=== PATIENT | male | born 1995 | race Caucasian/White ===

== ENCOUNTER 2022-05-24 15:04 | Emergency (ER) | payer MEDICAID ==
[2022-05-24 16:42] LABS: #Eosinphils 0.1 thou/uL (0.0-0.7); #Lymphocytes 1.9 thou/uL (1.20-3.40); #Neutrophils 11.8 thou/uL (1.40-6.50); %Basophils 0.3 % (0.0-1.0); %Eosinophils 0.6 % (0.0-10.0); %Lymphocytes 12.9 % (21.0-51.0); %Monocytes 6.6 % (0.0-10.0); %Neutrophils 79.6 % (42.0-75.0); Hemoglobin 15.2 g/dL (14.0-18.0); Mean Corpuscular Hemoglobin 30.7 pg (27.0-31.0); Mean Corpuscular Volume 90.2 fl (78.0-98.0); Mean Platelet Volume 7.8 fL (7.4-10.4); Platelet Count 285 10x3/uL (130-400); RBC Distribution Width 11.7 % (11.5-14.5); Red Blood Cell (RBC) Count 4.93 mill/uL (4.70-6.10); White Blood Cell (WBC) Count 14.8 10x3/uL (4.8-10.8)
[2022-05-24 17:00] LABS: Acetaminophen Less than 10.0 mcg/mL (10.0-30.0); Alcohol Less than 10 mg/dL (Less than 10); Salicylate Less than 8.0 mg/dL (15.0-30.0)
[2022-05-24 17:02] LABS: ALT (SGPT) 22 U/L (8-55); AST (SGOT) 35 U/L (5-34); Albumin 4.5 g/dL (3.5-5.0); Alkaline Phosphatase 85 U/L (40-110); Anion Gap 17 mmol/L (10-20); BUN (Urea Nitrogen) 13 mg/dL (8.9-20.6); Bilirubin, Total 0.9 mg/dL (0.2-1.2); CK (CPK) 570 U/L (30-200); Calc. Creatinine Clearance 0 mL/min (70-130); Calcium 9.2 mg/dL (7.8-10.44); Carbon Dioxide 21 mmol/L (22-29); Chloride 105 mmol/L (98-107); Estimated GFR 115; Globulin 2.5 g/dL (2.4-3.5); Glucose 70 mg/dL (70-105); Potassium 3.7 mmol/L (3.5-5.1); Sodium 139 mmol/L (136-145)
== END 2022-05-24 17:01 ==
LOC: ERS 15:04
DX: F19.10 Other psychoactive substance abuse, uncomplicated (principal); I25.2 Old myocardial infarction
CPT/HCPCS: 36415; 80053; 80307; 82550; 84443; 85025; 93005

== ENCOUNTER 2022-05-24 19:19 | Emergency (ER) | payer MEDICAID ==
[2022-05-24] MEDS ORDERED: GoLYTELY 4,000 ml Bottle PO SCH (19:45)
== END 2022-05-24 21:11 ==
LOC: ERS 19:19
DX: Z02.89 Encounter for other administrative examinations (principal); I25.2 Old myocardial infarction

== ENCOUNTER 2022-05-25 16:14 | Emergency (ER) | payer MEDICAID, OTHER | END 2022-05-25 19:59 | disposition home or self-care (01) | LOC: ERS 16:14 | DX: J02.8 Acute pharyngitis due to other specified organisms (principal); B09 Unspecified viral infection characterized by skin and mucous membrane lesions | CPT/HCPCS: 36415; 80053; 80307; 82550; 84443; 85025; 87081; 87430; 93005 ==

== ENCOUNTER 2022-05-25 21:45 | Emergency (ER) | payer MEDICAID | END 2022-05-25 22:22 | disposition left against medical advice (07) | LOC: ERS 21:45 | DX: F15.10 Other stimulant abuse, uncomplicated (principal); Z53.29 Procedure and treatment not carried out because of patient's decision for other reasons | CPT/HCPCS: 99282 ==

== ENCOUNTER 2022-05-26 09:22 | Emergency (ER) | payer OTHER ==
[2022-05-26 11:21] LABS: #Eosinphils 0.7 thou/uL (0.0-0.7); #Monocytes 0.8 thou/uL (0.11-0.59); #Neutrophils 5.3 thou/uL (1.40-6.50); %Basophils 0.5 % (0.0-1.0); %Eosinophils 8.3 % (0.0-10.0); %Lymphocytes 22.7 % (21.0-51.0); %Monocytes 8.8 % (0.0-10.0); %Neutrophils 59.8 % (42.0-75.0); Hemoglobin 14.8 g/dL (14.0-18.0); Mean Corpuscular HGB CONC 33.8 g/dL (32.0-36.0); Mean Corpuscular Hemoglobin 30.8 pg (27.0-31.0); Mean Corpuscular Volume 91.1 fl (78.0-98.0); Mean Platelet Volume 7.8 fL (7.4-10.4); Platelet Count 257 10x3/uL (130-400); Red Blood Cell (RBC) Count 4.81 mill/uL (4.70-6.10); White Blood Cell (WBC) Count 8.9 10x3/uL (4.8-10.8)
[2022-05-26 11:32] LABS: ALT (SGPT) 29 U/L (8-55); AST (SGOT) 36 U/L (5-34); Acetaminophen Less than 10.0 mcg/mL (10.0-30.0); Albumin 4.3 g/dL (3.5-5.0); Alcohol Less than 10 mg/dL (Less than 10); Alkaline Phosphatase 86 U/L (40-110); Anion Gap 16 mmol/L (10-20); BUN (Urea Nitrogen) 16 mg/dL (8.9-20.6); Bilirubin, Total 0.6 mg/dL (0.2-1.2); Calc. Creatinine Clearance 0 mL/min (70-130); Carbon Dioxide 19 mmol/L (22-29); Chloride 106 mmol/L (98-107); Estimated GFR 116; Globulin 2.5 g/dL (2.4-3.5); Glucose 89 mg/dL (70-105); Potassium 3.8 mmol/L (3.5-5.1); Protein, Total 6.8 g/dL (6.0-8.3); Salicylate Less than 8.0 mg/dL (15.0-30.0); Sodium 137 mmol/L (136-145)
[2022-05-26 14:41] LABS: Bilirubin Negative (Negative); Blood, Urine Negative (Negative); Clarity Clear (Clear); Glucose, Urine (Dipstick) Normal (Negative); Ketone, Urine 100 mg/dL (Negative); Leukocyte Negative Leu/uL (Negative); Nitrite Negative (Negative); Protein, Urine (Dipstick) 20 mg/dL (Neg-Trace); Specific Gravity, Urine 1.038 (1.002-1.036); pH, Urine 5.5 (5.0-9.0)
[2022-05-26 14:51] LABS: Amphetamine Detected (NotDetected); Barbiturates Screen Not Detected (NotDetected); Benzodiazepine Screen Not Detected (NotDetected); Cocaine Metabolite Screen Not Detected (NotDetected); Methadone Not Detected (NotDetected); Methamphetamine Detected (NotDetected); Opiate Screen Not Detected (NotDetected); Oxycodone Screen Not Detected (NotDetected); Phencyclidine (PCP) Not Detected (NotDetected); THC/Cannabinoid Screen Not Detected (NotDetected); Tricyclic Screen Not Detected (NotDetected)
[2022-05-26] MEDS ORDERED: cloNIDine 0.1 MG TAB ONE (15:17)
== END 2022-05-26 15:43 | disposition home or self-care (01) ==
LOC: ERS 09:22
DX: F19.239 Other psychoactive substance dependence with withdrawal, unspecified (principal); F17.210 Nicotine dependence, cigarettes, uncomplicated; J02.8 Acute pharyngitis due to other specified organisms; B09 Unspecified viral infection characterized by skin and mucous membrane lesions
CPT/HCPCS: 36415; 80053; 80306; 80307; 81003; 82550; 84443; 85025; 87081; 87430; 93005; 99283; 99284